=== PATIENT | female | born 1985 | race Two or more races ===

== ENCOUNTER → 2016-04-27 | Outpatient (CLI) | payer OTHER ==
[~2016-04-27] MED LIST: FE G325T PO; MOTR200T44 PO; TYLE325T5 PO
--- NOTE | 2016-04-27 10:09 | REP ---
Clinical: Anatomical evaluation. Comparison: 03/04/2016 . Findings: Examination demonstrates a single live intrauterine in breech presentation. motion is identified by technologist. Placenta is noted anteriorly and grade zero without evidence for placenta previa or abruption. Amniotic fluid volume is normal. Cervix measures 4.3 cm in length and appears closed. No evidence for nuchal cord. Gestational age by LMP 24 weeks 1 day with CHRISSY 08/16/2016 . Gestational age by current measurements 24 weeks 0 days with CHRISSY 08/17/2016 . FHR equals 139 beats per minute. Estimated weight 724 grams ( 61st percentile). Anatomical assessment demonstrates normal structures including cranium, choroid plexus, cavum, cerebellum/posterior fossa, facial features, lungs, four-chamber heart/ventricular outflow tracts, diaphragm, stomach, cord insertion, kidneys/bladder, spine, and extremities. Two vessel cord again noted. Impression: Single live intrauterine in breech presentation demonstrating appropriate interval growth. Two-vessel cord (single umbilical artery) again noted. Anatomical assessment is otherwise complete and normal. Signed by Rafael Velásquez MD 04/27/2016 10:00 A
== END ==
LOC: M SMT 08:37
PROVIDERS: ATTEND Advanced Practice Midwife
DX: O32.1XX0 Maternal care for breech presentation, not applicable or unspecified (principal); Z36 Encounter for antenatal screening of mother; Z3A.24 24 weeks gestation of pregnancy

== ENCOUNTER → 2016-05-21 | Outpatient (CLI) | payer OTHER ==
[2016-05-21 16:43] LABS: MEAN CORPUSCULAR HEMOGLOBIN 26.8 pg (27.0-33.0); MEAN CORPUSCULAR HGB CONC 30.8 g/dl (32.0-36.5); MEAN CORPUSCULAR VOLUME 87.1 fl (80.0-96.0); WHITE BLOOD COUNT 13.1 K/mm3 (4.0-10.0)
== END ==
LOC: M SMT 10:35
PROVIDERS: ATTEND Advanced Practice Midwife
DX: Z34.82 Encounter for supervision of other normal pregnancy, second trimester (principal); Z36 Encounter for antenatal screening of mother; Z3A.00 Weeks of gestation of pregnancy not specified

== ENCOUNTER → 2016-06-17 | Outpatient (CLI) | payer OTHER ==
--- NOTE | 2016-06-17 14:12 | REP ---
OB ULTRASOUND: Real-time sonographic evaluation of the gravid uterus is performed. There is a single living intrauterine gestation with an estimated gestational age of 31 weeks 3 days, EDC 08/16/2016. Today's measurements indicate appropriate growth. BPD 79 mm = 31 weeks 5 days, 54th percentile HC 294 mm = 32 weeks 3 days, 65th percentile AC 280 mm = 32 weeks 0 days, 59th percentile Femur length 63 mm = 32 weeks 4 days, 67th percentile HC/AC ratio 1.05 within normal range. Estimated weight 1922 grams, 59th percentile. Cervix is closed and measures 4.6 cm in length. heart rate 133 beats per minute. Amniotic fluid within normal limits, KRISTEN 11.9 within normal range of 8.7 to 24.0. S/D ratio 3.26 within normal range. RI 0.69 within normal range. Visualized anatomy today includes posterior fossa, upper lip, four chamber heart, right ventricular outflow tract, stomach, kidneys, and bladder which are all grossly unremarkable. position is vertex. Placenta is anterior with no previa. IMPRESSION: Appropriate growth. Normal KRISTEN. Signed by Kana Malik MD 06/17/2016 02:29 P
== END ==
LOC: M SMT 12:56
PROVIDERS: ATTEND Advanced Practice Midwife
DX: Z34.83 Encounter for supervision of other normal pregnancy, third trimester (principal); Z36 Encounter for antenatal screening of mother; Z3A.31 31 weeks gestation of pregnancy

== ENCOUNTER → 2016-07-02 | Outpatient (CLI) | payer OTHER ==
[2016-07-02 18:08] LABS: MEAN CORPUSCULAR HEMOGLOBIN 25.1 pg (27.0-33.0); MEAN CORPUSCULAR HGB CONC 31.8 g/dl (32.0-36.5); MEAN CORPUSCULAR VOLUME 78.8 fl (80.0-96.0); WHITE BLOOD COUNT 12.3 K/mm3 (4.0-10.0)
== END ==
LOC: M SMT 15:01
PROVIDERS: ATTEND Advanced Practice Midwife
DX: Z34.83 Encounter for supervision of other normal pregnancy, third trimester (principal); Z36 Encounter for antenatal screening of mother; Z3A.00 Weeks of gestation of pregnancy not specified

== ENCOUNTER → 2016-07-17 | Outpatient (CLI) | payer OTHER ==
--- NOTE | 2016-07-19 12:46 | REP ---
OB ULTRASOUND: Real-time sonographic evaluation of the gravid uterus is performed. There is a single living intrauterine gestation. The estimated gestational age is 35 weeks 5 days, with EDC 08/16/2016. Today's measurements indicate appropriate growth. Biometry and Growth: BPD 90 mm = 36 weeks 3 days, 61st percentile HC 310 mm = 34 weeks 5 days, 35th percentile AC 309 mm = 34 weeks 6 days, 37th percentile FL 69 mm = 35 weeks 4 days, 49th percentile HC/AC ratio 1.01 within normal range. Estimated weight 2613 grams, 41st percentile. Four chamber heart, stomach, kidneys and bladder are visualized and are grossly unremarkable. heart rate: 133 beats per minute. position: Vertex. Placenta: Anterior with no previa. Amniotic fluid: Within normal limits, KRISTEN 11.4 within normal range of 7.8 to 24.9. S/D ratio: 3.1 is slightly above the normal range of 2.0 to 3.0. RI: 0.67 is within normal range of 0.59 to 0.75. Signed by Kana Malik MD 07/19/2016 07:56 P
== END ==
LOC: M SMT 13:09
PROVIDERS: ATTEND Advanced Practice Midwife
DX: Z34.83 Encounter for supervision of other normal pregnancy, third trimester (principal); Z36 Encounter for antenatal screening of mother; Z3A.35 35 weeks gestation of pregnancy

== ENCOUNTER → 2016-07-22 | Outpatient (REF) | payer OTHER | LOC: M LAB REF 16:56 | PROVIDERS: ATTEND Advanced Practice Midwife | DX: Z34.83 Encounter for supervision of other normal pregnancy, third trimester (principal); Z36 Encounter for antenatal screening of mother; Z3A.00 Weeks of gestation of pregnancy not specified ==

== ENCOUNTER → 2016-07-28 | Outpatient (CLI) | payer OTHER ==
[~2016-07-28] MED LIST changes: +ACET50TA PO; +COLA100C3 PO; +FERR325T3 PO; +IBUP-1114 PO; +PRENTAB55 PO; +RANI15TA PO
[2016-07-28 17:32] LABS: MEAN CORPUSCULAR HEMOGLOBIN 23.2 pg (27.0-33.0); MEAN CORPUSCULAR HGB CONC 30.5 g/dl (32.0-36.5); MEAN CORPUSCULAR VOLUME 76.1 fl (80.0-96.0); RED CELL DISTRIBUTION WIDTH 16.4 % (11.5-14.5)
[2016-07-29 08:54] LABS: WHITE BLOOD COUNT 13.8 K/mm3 (4.0-10.0)
== END ==
LOC: M SMT 14:54
PROVIDERS: ATTEND Advanced Practice Midwife
DX: D64.9 Anemia, unspecified (principal)

== ENCOUNTER 2016-08-09 19:29 | Inpatient (IN) | payer OTHER ==
[~2016-08-09] VITALS: Ht 160 cm; Wt 68.0 kg
[~2016-08-09 19:29] MED LIST changes: -ACET50TA PO; -COLA100C3 PO; -FERR325T3 PO; -IBUP-1114 PO; -PRENTAB55 PO; -RANI15TA PO
[2016-08-09] MEDS ORDERED: RANI15TA PO (19:39)
[2016-08-09] MEDS ORDERED: PRENTAB55 PO (19:39)
[2016-08-09] MEDS ORDERED: FERR325T3 PO (19:39)
[2016-08-09] MEDS ORDERED: LR 1,000 ML IV SCH (19:57)
[2016-08-09] MEDS ORDERED: OXYTOCIN DRIP 30 UNITS in APPROPRIATE DILUENT 1 EA IV SCH ×2 (20:00→23:45)
--- NOTE | 2016-08-09 20:38 | HPE ---
DATE OF ADMISSION: 08/09/2016 HISTORY OF PRESENT ILLNESS: Jasmin is a 30-year-old 3, para 1-0-1-1, and 39-2/7 weeks gestation with an estimated date of confinement (EDC) of 08/14/2016, based on last normal menstrual period and supported by second trimester ultrasound. She presents to labor and delivery today with report of spontaneous rupture of membranes at approximately 10 a.m. of clear odorless fluid. She reports an occasional contraction. Denies vaginal bleeding and has had continued leakage of fluid. Her fetus has also been active. care was initiated at [facility] in the second trimester. course is complicated by two-vessel umbilical cord and the circumvallate placenta, as well as anemia. OBSTETRICAL HISTORY: September 2013, at 40 weeks gestation she had a spontaneous vaginal delivery for 6 pounds 8 ounce female. June 2015, she had a spontaneous . OBSTETRICAL LABORATORIES: Blood type O positive, antibody screen negative, rubella immune, venereal disease research laboratory (VDRL) nonreactive. Urine culture no growth. Hepatitis B surface antigen negative, HIV negative. Hepatitis C antibody nonreactive. Gonorrhea, chlamydia negative. She did decline genetic serum screenings. Her gestational diabetic screening was 110 and her GBS is negative. Her most recent hemoglobin and hematocrit on 07/28: Hematocrit 33.2, hemoglobin 10.1 and platelets 199. PAST MEDICAL HISTORY: Anemia, childhood varicella. SURGERIES: None. FAMILY HISTORY: Noncontributory. SOCIAL HISTORY: The patient is . Her is at bedside and supportive. She is a nonsmoker. Denies alcohol and drug use. No history of sexually transmitted infections or signs or history of abuse physical, sexual and emotional. ALLERGIES: No known drug allergies CURRENT MEDICATIONS: Include Zantac 150 mg, folic acid, vitamins and iron. OBJECTIVE: Vital signs have not been completed at this time of this dictation. However, her blood pressure is noted to be at 112/70. She is alert and oriented times three and she is in no apparent distress. She is smiling and talkative. heart rate is 130 with moderate variability, positive accelerations, no decelerations observed. There is no pattern of regular contractions. Her abdomen is gravid, cephalic presentation. Estimated weight approximately 7 pounds. Sterile spec exam: She has gross rupture of membranes clear fluid, positive fern, positive Nitrazine. Sterile vaginal exam 4 cm dilated, 80% effaced, zero station. ASSESSMENT: Intrauterine at 39-2/7 weeks. heart rate category one. Premature rupture of membranes. PLAN: Admit the patient to labor and delivery. Saline lock. Labs as ordered. Out of bed ad ronaldo. Clear liquid diet. I did review both induction of labor and expectant management at this time. Reviewed the options for induction of intravenous (IV) Pitocin. All the patient's and her 's questions were answered and they do desire to proceed with Pitocin induction at this time. I do anticipate labor and a spontaneous vaginal delivery.
[2016-08-09 21:01] LABS: MEAN CORPUSCULAR HEMOGLOBIN 22.6 pg (27.0-33.0); MEAN CORPUSCULAR HGB CONC 31.2 g/dl (32.0-36.5); MEAN CORPUSCULAR VOLUME 72.3 fl (80.0-96.0); RED CELL DISTRIBUTION WIDTH 16.7 % (11.5-14.5); WHITE BLOOD COUNT 11.3 K/mm3 (4.0-10.0)
[2016-08-09] MEDS ORDERED: RHOGAM 300 MCG (1500 IU) INJ (J2790) IM SCH (23:45)
[2016-08-09] MEDS ORDERED: MEASLES,MUMPS,RUBELLA VACCINE INJ (MMR-II) (90707) SC SCH (23:45)
[2016-08-09] MEDS ORDERED: DOCUSATE SODIUM 100 MG CAP PO PRN (23:45)
[2016-08-09] MEDS ORDERED: METHYLERGONOVINE MALEATE 0.2 MG TAB PO PRN (23:45)
[2016-08-09] MEDS ORDERED: DIBUCAINE 1% OINTMENT 30GM TOP PRN (23:45)
[2016-08-10] MEDS: ACETAMINOPHEN 500 MG TAB PO PRN ×2 (01:02→21:19)
[2016-08-10] MEDS: IBUPROFEN 800 MG TAB PO PRN ×2 (01:02→09:00)
[2016-08-10 01:36] VITALS: BP 133/63
--- NOTE | 2016-08-10 01:50 | DN ---
DATE OF SERVICE: 08/09/2016 Jasmin is a 30-year-old 3, para 2-0-1-2 admitted to labor and delivery with premature rupture of membranes. Intravenous (IV) Pitocin was started and labor did ensue. She reached full dilation at 2315. She pushed to a normal spontaneous vaginal delivery of a live female in occiput anterior (OA) position with restitution to left occiput transverse (LOT) position at 2320. There was no nuchal cord. The shoulders delivered with gentle downward guidance and the corpus immediately followed. The was placed on maternal abdomen crying and active. Her mouth and nares were bulb suctioned. The cord was clamped times two and cut by the father of the baby. A cord blood was obtained. Spontaneous expulsion of an intact placenta with two-vessel cord by Leslie mechanism was at 2326. There were trailing membranes that were teased out with a ring forceps. Uterine hemostasis achieved with IV Pitocin rapid infusion and uterine fundal massage. Estimated blood loss 400 mL. Perineum and vagina inspected and noted to be intact. female weighed 3312 grams, 7 pounds 5 ounces, scores 9 and 10. Mother plans to breastfeed her daughter. The family is undecided as to what to name their daughter at this time. At the close of delivery, lap counts, instrument counts and needle counts were correct and verified. [facility]
[2016-08-10 06:08] VITALS: BP 98/54
[2016-08-10] MEDS: PRENATAL VITAMIN TAB PO SCH (09:00)
[2016-08-10 18:00] VITALS: BP 109/57
[2016-08-11 06:41] VITALS: BP 100/56
[2016-08-11] MEDS: PRENATAL VITAMIN TAB PO SCH (08:47)
[2016-08-11] MEDS ORDERED: ACET50TA PO (08:51)
[2016-08-11] MEDS ORDERED: COLA100C3 PO (08:51)
[2016-08-11] MEDS ORDERED: IBUP-1114 PO (08:51)
== END 2016-08-11 12:00 | disposition home or self-care (01) | DRG 560 ==
LOC: M LDO 19:29 → M LDI 19:55 → M OBS 08-10 01:26
PROVIDERS: ADMIT Advanced Practice Midwife; ATTEND Advanced Practice Midwife
PROC: 10E0XZZ Delivery of Products of Conception, External Approach (ICD-10-PCS; principal; 2016-08-09)
DX: O99.02 Anemia complicating childbirth (principal); D64.9 Anemia, unspecified; O43.113 Circumvallate placenta, third trimester; O69.89X0 Labor and delivery complicated by other cord complications, not applicable or unspecified; Z37.0 Single live birth; Z3A.39 39 weeks gestation of pregnancy; Z79.899 Other long term (current) drug therapy

== ENCOUNTER → 2016-09-21 | Outpatient (REF) | payer OTHER ==
[~2016-09-21] MED LIST changes: +ACET50TA PO; +COLA100C5 PO; +FERR325T3 PO; +IBUP-1114 PO; +PRENTAB55 PO; +RANI15TA PO
== END ==
LOC: M LAB REF 12:56
PROVIDERS: ATTEND Advanced Practice Midwife
DX: R30.0 Dysuria (principal)

== ENCOUNTER → 2017-08-23 | Outpatient (CLI) | payer OTHER, SELFPAY ==
[2017-08-23 16:59] LABS: BASO % 0.4 % (0.0-1.0); EOS # 0.1 10^3/uL (0.0-0.50); EOS % 1.3 % (0.0-3.0); HEMATOCRIT 36.4 % (36.0-47.0); HEMOGLOBIN 11.6 g/dl (12.0-15.5); IMMATURE GRANULOCYTE % 0.9 % (0-3.0); LYMPH % 28.4 % (24.0-44.0); MEAN CORPUSCULAR HEMOGLOBIN 28.9 pg (27.0-33.0); MEAN CORPUSCULAR HGB CONC 31.9 g/dl (32.0-36.5); MEAN CORPUSCULAR VOLUME 90.5 fl (80.0-96.0); MONO # 0.4 10^3/uL (0.0-0.8); NEUTROPHILS # 4.4 10^3/uL (1.8-7.7); PLATELET COUNT, AUTOMATED 251 10^3/uL (150-450); RED BLOOD COUNT 4.02 10^6/uL (4.00-5.40); RED CELL DISTRIBUTION WIDTH 13.7 % (11.5-14.5)
[2017-08-23 17:32] LABS: HCG, SERUM QUANTITATIVE 2223 MIU/ML
== END ==
LOC: M WUC 12:45
DX: N91.2 Amenorrhea, unspecified (principal)
CPT/HCPCS: 84702

== ENCOUNTER → 2017-10-15 | Outpatient (CLI) | payer OTHER ==
[2017-10-15 18:13] LABS: BASO % 0.3 % (0.0-1.0); EOS # 0.1 10^3/uL (0.0-0.50); EOS % 0.8 % (0.0-3.0); HEMOGLOBIN 11.4 g/dl (12.0-15.5); IMMATURE GRANULOCYTE % 0.4 % (0-3.0); LYMPH # 1.4 10^3/uL (1.5-6.5); LYMPH % 17.3 % (24.0-44.0); MEAN CORPUSCULAR HEMOGLOBIN 29.1 pg (27.0-33.0); MEAN CORPUSCULAR HGB CONC 31.7 g/dl (32.0-36.5); MEAN CORPUSCULAR VOLUME 91.8 fl (80.0-96.0); MONO # 0.3 10^3/uL (0.0-0.8); MONO % 4.2 % (0.0-5.0); NEUTROPHILS # 6.1 10^3/uL (1.8-7.7); PLATELET COUNT, AUTOMATED 217 10^3/uL (150-450); RED BLOOD COUNT 3.92 10^6/uL (4.00-5.40); RED CELL DISTRIBUTION WIDTH 13.2 % (11.5-14.5); WHITE BLOOD COUNT 7.9 10^3/uL (4.0-10.0)
[2017-10-15 18:39] LABS: FREE T4 0.85 NG/DL (0.76-1.46)
[2017-10-15 20:08] LABS: CHLAMYDIA DNA AMPLIFICATION NEGATIVE (NEGATIVE); GC DNA AMPLIFICATION NEGATIVE (NEGATIVE)
[2017-10-18 11:27] LABS: RUBELLA IgG QUALITATIVE IMMUNE (IMMUNE)
[2017-10-18 11:33] LABS: HBsAg Prenatal NEGATIVE (NEGATIVE)
[2017-10-18 11:57] LABS: HEPATITIS C VIRUS ABY INDEX 0.1 INDEX (<0.8)
[2017-10-18 11:58] LABS: HIV 1&2 SCREEN CENTAUR NEGATIVE (NEGATIVE)
== END ==
LOC: M SMT 15:04
DX: Z34.81 Encounter for supervision of other normal pregnancy, first trimester (principal); Z3A.12 12 weeks gestation of pregnancy
CPT/HCPCS: 84443

== ENCOUNTER → 2017-11-09 | Outpatient (CLI) | payer OTHER | LOC: M RAD 12:16 | DX: Z34.81 Encounter for supervision of other normal pregnancy, first trimester (principal); Z36.89 Encounter for other specified antenatal screening; Z3A.16 16 weeks gestation of pregnancy | CPT/HCPCS: 76811 ==

== ENCOUNTER → 2017-11-30 | Outpatient (CLI) | payer OTHER | LOC: M RAD 11:56 | DX: Z34.82 Encounter for supervision of other normal pregnancy, second trimester (principal); Z36.89 Encounter for other specified antenatal screening; Z3A.19 19 weeks gestation of pregnancy | CPT/HCPCS: 76816 ==

== ENCOUNTER → 2018-01-31 | Outpatient (CLI) | payer OTHER ==
[2018-01-31 13:36] LABS: BASO % 0.2 % (0.0-1.0); EOS # 0.1 10^3/uL (0.0-0.50); EOS % 0.6 % (0.0-3.0); HEMATOCRIT 32.2 % (36.0-47.0); IMMATURE GRANULOCYTE % 1.6 % (0-3.0); LYMPH # 1.3 10^3/uL (1.5-4.5); LYMPH % 12.8 % (24.0-44.0); MEAN CORPUSCULAR HGB CONC 31.1 g/dl (32.0-36.5); MEAN CORPUSCULAR VOLUME 83.9 fl (80.0-96.0); MONO # 0.5 10^3/uL (0.0-0.8); MONO % 5.1 % (0.0-5.0); NEUTROPHILS # 8.3 10^3/uL (1.8-7.7); NEUTROPHILS % 79.7 % (36.0-66.0); PLATELET COUNT, AUTOMATED 172 10^3/uL (150-450); RED BLOOD COUNT 3.84 10^6/uL (4.00-5.40); RED CELL DISTRIBUTION WIDTH 14.4 % (11.5-14.5); WHITE BLOOD COUNT 10.4 10^3/uL (4.0-10.0)
[2018-01-31 13:51] LABS: GLUCOSE CHALLENGE TEST 1 HOUR 114 MG/DL (LESS THAN 140)
== END ==
LOC: M SMT 10:29
DX: Z34.82 Encounter for supervision of other normal pregnancy, second trimester (principal); Z3A.00 Weeks of gestation of pregnancy not specified
CPT/HCPCS: 82950

== ENCOUNTER → 2018-03-21 | Outpatient (REF) | payer OTHER ==
[~2018-03-21] MED LIST changes: -ACET50TA PO; +MAPA500T2 PO
== END ==
LOC: M LAB REF 17:24
PROVIDERS: ATTEND Advanced Practice Midwife
DX: R30.0 Dysuria (principal)

== ENCOUNTER → 2018-03-29 | Outpatient (REF) | payer OTHER | LOC: M LAB REF 17:14 | PROVIDERS: ATTEND Advanced Practice Midwife | DX: O99.89 Other specified diseases and conditions complicating pregnancy, childbirth and the puerperium (principal); Z3A.00 Weeks of gestation of pregnancy not specified ==

== ENCOUNTER 2018-04-23 05:04 | Inpatient (IN) | payer OTHER ==
[2018-04-23] VITALS (9 sets, daily range): BP systolic 98–126; BP diastolic 54–72
[2018-04-23 05:56] LABS: HEMATOCRIT 33.1 % (36.0-47.0); HEMOGLOBIN 9.7 g/dl (12.0-15.5); MEAN CORPUSCULAR HEMOGLOBIN 21.7 pg (27.0-33.0); MEAN CORPUSCULAR HGB CONC 29.3 g/dl (32.0-36.5); MEAN CORPUSCULAR VOLUME 73.9 fl (80.0-96.0); PLATELET COUNT, AUTOMATED 180 10^3/uL (150-450); RED BLOOD COUNT 4.48 10^6/uL (4.00-5.40); WHITE BLOOD COUNT 15.3 10^3/uL (4.0-10.0)
[2018-04-23] MEDS ORDERED: OXYTOCIN 30 UNITS IN 0.9% NaCl 500ML IV BAG (J2590) As Ordered ONE (07:12)
[2018-04-23] MEDS ORDERED: LR 1,000 ML IV SCH (07:22)
[2018-04-23] MEDS ORDERED: OXYTOCIN DRIP 30 UNITS in APPROPRIATE DILUENT 1 EA IV SCH ×2 (07:30→09:01)
[2018-04-23] MEDS: PRENATAL VITAMINS CHEWABLE TABLET PO SCH (09:00)
[2018-04-23] MEDS ORDERED: METHYLERGONOVINE MALEATE 0.2 MG TAB PO PRN (09:15)
[2018-04-23] MEDS ORDERED: ACETAMINOPHEN 500 MG TAB PO PRN (09:15)
[2018-04-23] MEDS ORDERED: RHOGAM 300 MCG (1500 IU) INJ (J2790) IM SCH (09:15)
[2018-04-23] MEDS ORDERED: DIBUCAINE 1% OINTMENT 30GM TOP PRN (09:15)
[2018-04-23] MEDS ORDERED: DOCUSATE SODIUM 100 MG CAP PO PRN (09:15)
[2018-04-23] MEDS ORDERED: MEASLES,MUMPS,RUBELLA VACCINE INJ (MMR-II) (90707) SC SCH (09:15)
[2018-04-23] MEDS ORDERED: ANUSOL HC CREAM 30GM TOP PRN (09:15)
[2018-04-23] MEDS: IBUPROFEN 800 MG TAB PO PRN ×2 (09:27→21:24)
--- NOTE | 2018-04-23 09:49 | DN ---
DATE OF DELIVERY: 04/23/2018 Jasmin is a 32-year-old 4, para 3-0-1-3 now who was admitted to labor and delivery in active labor. She coped with her labor physiologically. She had assisted rupture of membranes for clear odorless fluid at 0557. She reached full dilation at 0838. She pushed to a normal spontaneous vaginal delivery of a live male in OA position with restitution to ROT position at 0840. There was no nuchal cord. The shoulders delivered with gentle downward guidance and the corpus immediately followed. The male was placed on maternal abdomen crying and active. Mouth and nares were bulb suctioned. The cord was clamped times two once pulsations ceased and cut by the father of the baby under my direction. A spontaneous expulsion of an intact placenta with three-vessel cord by Leslie mechanism was at 0847. Uterine hemostasis was achieved with IV Pitocin rapid infusion and uterine fundal massage. Estimated blood loss 300 mL. Perineum and vagina inspected and noted to be intact. male weighed 4030 grams, 8 pounds 14 ounces, of 9 and 9. Mom is going to breastfeed her son. At this time, the family is undecided as to what to name their son. At the close of delivery, lap counts and instrument counts were correct and verified.
--- NOTE | 2018-04-23 12:15 | HPE ---
DATE OF ADMISSION: 04/23/2018 Jasmin is a 32-year-old 4, para 2-0-1-2 at 40 weeks gestation with an EDC of 04/23/2018 based on last menstrual period and confirmed by second trimester ultrasound who presents to labor and delivery today with report of onset of uncomfortable contractions at 0300. Denies any bloody show and leakage of fluid. The fetus has been active. Her care was initiated at [facility] in the second trimester. course complicated by anemia. History of two children with functional VSD. No repair was required for and she did not make obstetric provider aware of this until far into the third trimester. OBSTETRICAL HISTORY: September 2013, 40 weeks gestation, spontaneous vaginal delivery, 6 pounds 8 ounce female. June 2015 spontaneous miscarriage. August 2016, 39-3/7 weeks spontaneous vaginal delivery for 7 pound 5 ounce female. OBSTETRIC LABS: O+, antibody screen negative, rubella immune, VDRL nonreactive. Urine culture no growth. Hep B surface antigen, HIV negative. Hep C antibody nonreactive. Gonorrhea and chlamydia negative. Thyroid normal. She did decline genetic serum screening labs. Gestational diabetic screening normal at 114. Her GBS is negative. PAST MEDICAL HISTORY: Anemia. SURGERIES: Hemorrhoidectomy. FAMILY HISTORY: Noncontributory. SOCIAL HISTORY: The patient is . Her is at bedside and supportive. She is a nonsmoker. Denies alcohol and drug use. No history of any sexually transmitted infections and denies history of abuse, physical, sexual and emotional. ALLERGIES: No known drug allergies. CURRENT MEDICATIONS: - Protonix - vitamins - Floradix liquid iron OBJECTIVE: Blood pressure is 112/71. She is alert and oriented times three. She does appear uncomfortable with her contractions. heart rate is 140 with moderate variability, positive accelerations, positive variable decelerations. Contractions are approximately every 5 minutes. Her abdomen is gravid, cephalic presentation. Estimated weight 7-1/2 to 8 pounds. Sterile vaginal exam 6 cm, 80%. -1 station, membranes intact. Scant bloody show. ASSESSMENT: Intrauterine at 40 weeks gestation. heart rate category II active labor. PLAN: Admit the patient to labor and delivery. Out of bed ad ronaldo. Saline lock. Position re-change IV fluid bolus Routine labs. I do anticipate continued labor and a spontaneous vaginal delivery. MTDD
[2018-04-23] MEDS ORDERED: OXYTOCIN INJ 10 UNITS/ML VIAL (J2590) As Ordered ONE (15:02)
[2018-04-24 06:00] VITALS: BP 107/60
[2018-04-24] MEDS: PRENATAL VITAMINS CHEWABLE TABLET PO SCH (09:00)
[2018-04-24] MEDS ORDERED: PRENATAL VITAMINS CHEWABLE TABLET PO SCH (09:00)
[2018-04-24] MEDS: IBUPROFEN 800 MG TAB PO PRN (09:20)
[2018-04-24] MEDS ORDERED: IBUP-1114 PO (10:33)
[2018-04-24] MEDS ORDERED: MAPA500T2 PO (10:33)
== END 2018-04-24 16:15 | disposition home or self-care (01) | DRG 560 ==
LOC: M LDO 05:04 → M LDI 05:31 → M OBS 13:31
PROVIDERS: ADMIT Advanced Practice Midwife; ATTEND Advanced Practice Midwife
PROC: 10E0XZZ Delivery of Products of Conception, External Approach (ICD-10-PCS; principal; 2018-04-23)
PROC: 10907ZC Drainage of Amniotic Fluid, Therapeutic from Products of Conception, Via Natural or Artificial Opening (ICD-10-PCS; 2018-04-23)
DX: O99.02 Anemia complicating childbirth (principal); D64.9 Anemia, unspecified; Z3A.40 40 weeks gestation of pregnancy; Z37.0 Single live birth

== ENCOUNTER → 2019-01-27 | Outpatient (CLI) | payer OTHER ==
[2019-01-27 10:08] LABS: HEMATOCRIT 40.5 % (36.0-47.0); HEMOGLOBIN 12.9 g/dl (12.0-15.5); MEAN CORPUSCULAR HEMOGLOBIN 29.3 pg (27.0-33.0); MEAN CORPUSCULAR HGB CONC 31.9 g/dl (32.0-36.5); PLATELET COUNT, AUTOMATED 248 10^3/uL (150-450); WHITE BLOOD COUNT 6.1 10^3/uL (4.0-10.0)
[2019-01-27 10:40] LABS: ALBUMIN 4.3 GM/DL (3.2-5.2); ALT/SGPT 19 U/L (12-78); BILIRUBIN,TOTAL 2.3 MG/DL (0.2-1.0); BLOOD UREA NITROGEN 19 MG/DL (7-18); CALCIUM LEVEL 9.1 MG/DL (8.5-10.1); CARBON DIOXIDE LEVEL 28 MEQ/L (21-32); CHLORIDE LEVEL 110 MEQ/L (98-107); CHOLESTEROL LEVEL 150 MG/DL (<200); CREATININE FOR GFR 0.75 MG/DL (0.55-1.30); GLOMERULAR FILTRATION RATE > 60.0 (>60); GLUCOSE, FASTING 90 MG/DL (70-100); HDL CHOLESTEROL 50 MG/DL (>40); IRON (FE) 129 UG/DL (50-170); LDL CHOLESTEROL 92 MG/DL (<100); NON-HDL-C 100 MG/DL; PERCENT SATURATION 40.8 % (13.2-45.0); POTASSIUM SERUM 4.2 MEQ/L (3.5-5.1); SODIUM LEVEL 142 MEQ/L (136-145); TOTAL IRON BINDING CAPACITY 316 UG/DL (250-450); TOTAL PROTEIN 7.6 GM/DL (6.4-8.2); TRIGLYCERIDES LEVEL 42 MG/DL (<150)
[2019-01-27 10:49] LABS: TOTAL 25(OH) VITAMIN D 25.8 NG/ML (30.0-100.0)
== END ==
LOC: M LAB 09:45
PROVIDERS: ATTEND Family Medicine
DX: D64.9 Anemia, unspecified (principal); R53.83 Other fatigue

== ENCOUNTER → 2019-02-13 | Outpatient (CLI) | payer MEDICAID, OTHER, SELFPAY ==
[~2019-02-13] MED LIST changes: +E-Z-GAS II EFFERVESCENT PACKET (SODIUM BICARB./CITRIC ACID/SIMETHICONE) As Ordered ONE; +E-Z-HD 98% w/w 340GM SUSP BTL As Ordered ONE; +E-Z-PAQUE 96% w/w SUSP 176GM BTL As Ordered ONE
--- NOTE | 2019-02-13 09:38 | REP ---
RIGHT UPPER QUADRANT ULTRASOUND: Real-time sonographic evaluation of the right upper quadrant was performed. Gallbladder demonstrates no calculi, wall thickening or pericholecystic fluid. There is no intrahepatic or extrahepatic biliary dilatation. Common bile duct measuring 4 mm. Liver and pancreas demonstrates no gross mass. Right kidney demonstrates no hydronephrosis with normal size of 11.1 cm in length. IMPRESSION: Essentially negative right upper quadrant ultrasound. Electronically Signed by Kana Malik MD 02/13/2019 03:47 P
--- NOTE | 2019-02-13 18:05 | REP ---
Upper GI air contrast The procedure was performed under the direct supervision of Dr. Ying. The images were reviewed with Dr. Ying The specimen collector film shows no organomegaly or pathological masses. The intestinal gas pattern is non-specific. Liquid barium and gas producing crystals were given in the erect position as well as liquid barium in the prone oblique position in order to perform a double contrast upper GI examination. The oral and pharyngeal stages of deglutition are unremarkable. Esophageal transport is prompt and efficient and there is no esophagitis, stricture, mucosal ring or hiatal hernia. Gastroesophageal reflux is not demonstrated on this examination. Within the stomach there are prominent areae gastricae a which may represent early gastritis. There is no ulcer identified. The duodenal tomas are normally outlined . The mucosal folds are smooth and regular. There is no duodenitis pancreatitis peptic ulcer disease or neoplasm. The visualized portion of the proximal small bowel appears normal in course and caliber. Impression: There are prominent areae gastricae within the stomach which may represent early gastritis. There is no ochoa ulcer identified. 1.5 minutes of fluoro time was utilized for this procedure. Electronically Signed by ALINE Samuel 02/13/2019 04:57 P Electronically Signed by Rashard Ying MD 02/13/2019 05:57 P
== END ==
LOC: M RAD 07:36
PROVIDERS: ATTEND Family Medicine
DX: K21.9 Gastro-esophageal reflux disease without esophagitis (principal); R10.9 Unspecified abdominal pain

== ENCOUNTER 2019-05-04 10:21 | Outpatient (RCR) | payer OTHER ==
[~2019-05-04 10:21] MED LIST changes: -E-Z-GAS II EFFERVESCENT PACKET (SODIUM BICARB./CITRIC ACID/SIMETHICONE) As Ordered ONE; -E-Z-HD 98% w/w 340GM SUSP BTL As Ordered ONE; -E-Z-PAQUE 96% w/w SUSP 176GM BTL As Ordered ONE
== END 2019-05-06 | disposition home or self-care (01) ==
LOC: M PT 10:21
PROVIDERS: ATTEND Advanced Practice Midwife
DX: R32 Unspecified urinary incontinence (principal)

== ENCOUNTER 2019-05-23 10:56 | Outpatient (RCR) | payer OTHER | END 2019-06-06 | LOC: M PT 10:56 | PROVIDERS: ATTEND Advanced Practice Midwife | DX: N39.3 Stress incontinence (female) (male) (principal) ==

== ENCOUNTER → 2021-01-01 | Outpatient (CLI) | payer OTHER ==
[2021-01-01 11:53] LABS: HEMATOCRIT 40.7 % (36.0-47.0); MEAN CORPUSCULAR HEMOGLOBIN 29.6 pg (27.0-33.0); MEAN CORPUSCULAR HGB CONC 31.9 g/dl (32.0-36.5); MEAN CORPUSCULAR VOLUME 92.7 fl (80.0-96.0); PLATELET COUNT, AUTOMATED 240 10^3/uL (150-450); RED BLOOD COUNT 4.39 10^6/uL (4.00-5.40); WHITE BLOOD COUNT 6.9 10^3/uL (4.0-10.0)
[2021-01-01 12:54] LABS: ALBUMIN 3.9 GM/DL (3.2-5.2); ALT/SGPT 21 U/L (12-78); BILIRUBIN,TOTAL 1.4 MG/DL (0.2-1.0); BLOOD UREA NITROGEN 14 MG/DL (7-18); CALCIUM LEVEL 9.3 MG/DL (8.5-10.1); CARBON DIOXIDE LEVEL 28 MEQ/L (21-32); CHLORIDE LEVEL 106 MEQ/L (98-107); CHOLESTEROL LEVEL 163 MG/DL (<200); CHOLESTEROL RISK RATIO 3.543 (<5); CREATININE FOR GFR 0.75 MG/DL (0.55-1.30); GLOMERULAR FILTRATION RATE > 60.0 (>60); GLUCOSE, FASTING 95 MG/DL (70-100); HDL CHOLESTEROL 46 MG/DL (>40); LDL CHOLESTEROL 97 MG/DL (<100); NON-HDL-C 117 MG/DL; SODIUM LEVEL 138 MEQ/L (136-145); TOTAL PROTEIN 7.3 GM/DL (6.4-8.2); TRIGLYCERIDES LEVEL 101 MG/DL (<150)
[2021-01-01 13:12] LABS: HEMOGLOBIN A1c 5.2 %
--- NOTE | 2021-01-01 13:38 | REP ---
INDICATION: ANEMIA,FATIGUE,SCIATICA. COMPARISON: None. TECHNIQUE: AP view pelvis. FINDINGS: There is no acute fracture, dislocation or intrinsic bone disease. The hip joints are normal. The sacroiliac joints appear unremarkable. IMPRESSION: Negative exam pelvis. <Electronically signed by Kana Malik > 01/01/21 [id number]
--- NOTE | 2021-01-01 13:40 | REP ---
INDICATION: ANEMIA,FATIGUE,SCIATICA. COMPARISON: None. TECHNIQUE: Five views lumbosacral spine. FINDINGS: There is no compression fracture or malalignment. There is normal lumbar lordosis. There is mild spurring of L2 and L3 vertebral bodies with mild disc space narrowing and subchondral sclerosis at the L2-3 level.. Posterior elements are intact. IMPRESSION: Mild degenerative changes L2-3. No fracture or dislocation. <Electronically signed by Kana Malik > 01/01/21 [id number]
== END ==
LOC: M RAD 09:39
PROVIDERS: ATTEND Family Medicine
DX: D64.9 Anemia, unspecified (principal); R53.83 Other fatigue; M54.30 Sciatica, unspecified side

== ENCOUNTER → 2021-06-30 | Outpatient (CLI) | payer OTHER, BC | LOC: M PLALAB 12:50 | PROVIDERS: ATTEND Advanced Practice Midwife | DX: O20.8 Other hemorrhage in early pregnancy (principal); Z3A.00 Weeks of gestation of pregnancy not specified ==

== ENCOUNTER → 2021-07-02 | Outpatient (CLI) | payer OTHER, BC | LOC: M PLALAB 12:30 | PROVIDERS: ATTEND Advanced Practice Midwife | DX: O20.8 Other hemorrhage in early pregnancy (principal) ==

== ENCOUNTER → 2021-11-21 | Outpatient (CLI) | payer BC ==
[2021-11-21 15:35] LABS: HEMATOCRIT 39.1 % (36.0-47.0); HEMOGLOBIN 12.6 g/dl (12.0-15.5); MEAN CORPUSCULAR HEMOGLOBIN 29.8 pg (27.0-33.0); MEAN CORPUSCULAR HGB CONC 32.2 g/dl (32.0-36.5); MEAN CORPUSCULAR VOLUME 92.4 fl (80.0-96.0); PLATELET COUNT, AUTOMATED 192 10^3/uL (150-450); RED BLOOD COUNT 4.23 10^6/uL (4.00-5.40); WHITE BLOOD COUNT 10.3 10^3/uL (4.0-10.0)
[2021-11-21 16:58] LABS: GC DNA AMPLIFICATION NEGATIVE (NEGATIVE)
[2021-11-21 17:19] LABS: HEPATITIS C VIRUS ABY INDEX < 0.0 INDEX (<0.8); HIV 1&2 SCREEN CENTAUR NEGATIVE (NEGATIVE)
== END ==
LOC: M PLALAB 13:47
PROVIDERS: ATTEND Advanced Practice Midwife
DX: Z34.92 Encounter for supervision of normal pregnancy, unspecified, second trimester (principal); Z3A.00 Weeks of gestation of pregnancy not specified

== ENCOUNTER → 2021-12-10 | Outpatient (CLI) | payer BC | LOC: M WHC 09:27 | PROVIDERS: ATTEND Advanced Practice Midwife | DX: Z34.92 Encounter for supervision of normal pregnancy, unspecified, second trimester (principal) ==

== ENCOUNTER → 2022-01-07 | Outpatient (CLI) | payer BC | LOC: M WHC 09:31 | PROVIDERS: ATTEND Advanced Practice Midwife | DX: Z34.92 Encounter for supervision of normal pregnancy, unspecified, second trimester (principal) ==

== ENCOUNTER → 2022-02-05 | Outpatient (CLI) | payer BC ==
[2022-02-05 15:55] LABS: HEMATOCRIT 36.7 % (36.0-47.0); HEMOGLOBIN 11.9 g/dl (12.0-15.5); MEAN CORPUSCULAR HEMOGLOBIN 29.3 pg (27.0-33.0); MEAN CORPUSCULAR HGB CONC 32.4 g/dl (32.0-36.5); MEAN CORPUSCULAR VOLUME 90.4 fl (80.0-96.0); PLATELET COUNT, AUTOMATED 149 10^3/uL (150-450); RED BLOOD COUNT 4.06 10^6/uL (4.00-5.40); WHITE BLOOD COUNT 11.6 10^3/uL (4.0-10.0)
== END ==
LOC: M PLALAB 11:24
PROVIDERS: ATTEND Advanced Practice Midwife
DX: Z34.92 Encounter for supervision of normal pregnancy, unspecified, second trimester (principal)

== ENCOUNTER → 2022-04-10 | Outpatient (REF) | payer BC, OTHER | LOC: M SFHCWAGY 12:47 | PROVIDERS: ATTEND Advanced Practice Midwife | DX: Z34.93 Encounter for supervision of normal pregnancy, unspecified, third trimester (principal) ==

== ENCOUNTER 2022-04-21 15:20 | Inpatient (IN) | payer BC, OTHER ==
[~2022-04-21] VITALS: Ht 160 cm; Wt 90.0 kg
[2022-04-21] VITALS (7 sets, daily range): BP systolic 110–143; BP diastolic 62–82
[2022-04-21] MEDS ORDERED: GUAI100S4 (15:32)
[2022-04-21] MEDS ORDERED: LIDOCAINE 1% MDV 20ML VIAL INFIL PRN (15:35)
[2022-04-21] MEDS ORDERED: OXYTOCIN DRIP 30 UNITS in IV 1 EA IV PRN (15:35)
[2022-04-21] MEDS ORDERED: HOME MED LIST COMPLETE! XX SCH (15:35)
[2022-04-21] MEDS ORDERED: OXYTOCIN INJ 10UNITS/ML 1ML VIAL IM ONE (15:40)
[2022-04-21] MEDS ORDERED: METHYLERGONOVINE MALEATE 0.2MG/ML 1ML VIAL IM STA (16:07)
[2022-04-21] MEDS ORDERED: DIBUCAINE 1% OINTMENT 30GM TOP PRN (16:30)
[2022-04-21] MEDS ORDERED: IBUPROFEN 600MG TAB PO PRN (16:30)
[2022-04-21] MEDS ORDERED: DOCUSATE SODIUM 100MG CAPSULE PO PRN (16:30)
[2022-04-21] MEDS ORDERED: ACETAMINOPHEN TAB 650MG DOSE (2X325MG) PO PRN (16:30)
[2022-04-21] MEDS ORDERED: METHYLERGONOVINE MALEATE 0.2 MG TAB PO PRN (16:30)
[2022-04-21] MEDS ORDERED: RHOGAM 300MCG (1500IU) INJ IM SCH (16:30)
[2022-04-21] MEDS: IBUPROFEN 800 MG TAB PO PRN (17:08)
[2022-04-21 17:31] LABS: HEMATOCRIT 34.5 % (36.0-47.0); MEAN CORPUSCULAR HEMOGLOBIN 25.9 pg (27.0-33.0); MEAN CORPUSCULAR HGB CONC 31.9 g/dl (32.0-36.5); MEAN CORPUSCULAR VOLUME 81.4 fl (80.0-96.0); PLATELET COUNT, AUTOMATED 152 10^3/uL (150-450); RED BLOOD COUNT 4.24 10^6/uL (4.00-5.40); WHITE BLOOD COUNT 10.1 10^3/uL (4.0-10.0)
[2022-04-21] MEDS: ACETAMINOPHEN 500 MG TAB PO PRN (19:25)
[2022-04-21] MEDS: guaiFENesin/CODEINE SYRUP 5 ML UDC PO PRN (23:17)
[2022-04-22] MEDS: ACETAMINOPHEN 500 MG TAB PO PRN (02:14)
[2022-04-22 06:00] VITALS: BP 116/64
[2022-04-22] MEDS: guaiFENesin/CODEINE SYRUP 5 ML UDC PO PRN ×2 (07:59→21:11)
[2022-04-22] MEDS: PRENATAL VITAMINS CHEWABLE TABLET PO SCH (08:06)
[2022-04-22] MEDS: IBUPROFEN 800 MG TAB PO PRN (08:07)
[2022-04-22 18:00] VITALS: BP 128/68
[2022-04-23 06:00] VITALS: BP 110/62
[2022-04-23] MEDS ORDERED: MEASLES,MUMPS,RUBELLA VACCINE INJ (MMR-II) SC.IMMUN ONE (09:00)
[2022-04-23] MEDS: PRENATAL VITAMINS CHEWABLE TABLET PO SCH (09:11)
== END 2022-04-23 15:00 | disposition home or self-care (01) | DRG 560 ==
LOC: M LDO 15:20 → M LDI 15:29 → M OBS 19:07
PROVIDERS: ADMIT Specialist; ATTEND Advanced Practice Midwife
PROC: 10E0XZZ Delivery of Products of Conception, External Approach (ICD-10-PCS; principal; 2022-04-21)
PROC: 10907ZC Drainage of Amniotic Fluid, Therapeutic from Products of Conception, Via Natural or Artificial Opening (ICD-10-PCS; 2022-04-21)
DX: O80 Encounter for full-term uncomplicated delivery (principal); Z37.0 Single live birth; Z3A.38 38 weeks gestation of pregnancy

== ENCOUNTER → 2023-01-01 | Outpatient (CLI) | payer OTHER ==
[~2023-01-01] MED LIST changes: +GUAI100S4
[2023-01-01 12:08] LABS: HEMATOCRIT 40.3 % (36.0-47.0); HEMOGLOBIN 13.2 g/dl (12.0-15.5); MEAN CORPUSCULAR HEMOGLOBIN 29.4 pg (27.0-33.0); MEAN CORPUSCULAR HGB CONC 32.8 g/dl (32.0-36.5); MEAN CORPUSCULAR VOLUME 89.8 fl (80.0-96.0); PLATELET COUNT, AUTOMATED 254 10^3/uL (150-450); RED BLOOD COUNT 4.49 10^6/uL (4.00-5.40); WHITE BLOOD COUNT 6.6 10^3/uL (4.0-10.0)
[2023-01-01 12:17] LABS: HEMOGLOBIN A1c 4.4 % (4.0-6.0)
[2023-01-01 12:34] LABS: TOTAL IRON BINDING CAPACITY 308 UG/DL (250-425)
[2023-01-01 12:35] LABS: IRON (FE) 86 UG/DL (50-170); PERCENT SATURATION 27.9 % (13.2-45.0)
[2023-01-01 12:37] LABS: ALBUMIN 4.4 G/DL (3.2-5.2); ALKALINE PHOSPHATASE 82 U/L (46-116); ALT/SGPT 16 U/L (7.0-40); AST/SGOT 9 U/L (<34); BILIRUBIN,TOTAL 1.9 MG/DL (0.3-1.2); BLOOD UREA NITROGEN 22 MG/DL (9-23); CALCIUM LEVEL 9.4 MG/DL (8.5-10.1); CARBON DIOXIDE LEVEL 28 MMOL/L (20-31); CHLORIDE LEVEL 106 MMOL/L (98-107); CHOLESTEROL LEVEL 150 MG/DL (<200); CHOLESTEROL RISK RATIO 3.51 (<5); CREATININE FOR GFR 0.67 MG/DL (0.55-1.30); GLOMERULAR FILTRATION RATE > 60.0 (>60); GLUCOSE, FASTING 96 MG/DL (60-100); HDL CHOLESTEROL 42.7 MG/DL (>40); LDL CHOLESTEROL 100.1 MG/DL (<100); NON-HDL-C 107.3 MG/DL; POTASSIUM SERUM 4.2 MMOL/L (3.5-5.1); SODIUM LEVEL 142 MMOL/L (136-145); THYROID STIMULATING HORMONE 1.115 uIU/ML (0.55-4.78); TOTAL 25(OH) VITAMIN D 25.3 NG/ML (20.0-100.0); TOTAL PROTEIN 7.3 G/DL (5.7-8.2); TRIGLYCERIDES LEVEL 36 MG/DL (<150)
== END ==
LOC: M LAB 11:12
PROVIDERS: ATTEND Family Medicine
DX: D64.9 Anemia, unspecified (principal); R53.83 Other fatigue; E03.9 Hypothyroidism, unspecified

== ENCOUNTER → 2023-11-24 | Outpatient (CLI) | payer OTHER ==
[2023-11-24 11:02] LABS: HEMATOCRIT 38.6 % (36.0-47.0); HEMOGLOBIN 12.5 g/dl (12.0-15.5); MEAN CORPUSCULAR HEMOGLOBIN 30.3 pg (27.0-33.0); MEAN CORPUSCULAR HGB CONC 32.4 g/dl (32.0-36.5); MEAN CORPUSCULAR VOLUME 93.7 fl (80.0-96.0); PLATELET COUNT, AUTOMATED 203 10^3/uL (150-450); RED BLOOD COUNT 4.12 10^6/uL (4.00-5.40); WHITE BLOOD COUNT 6.9 10^3/uL (4.0-10.0)
[2023-11-24 11:32] LABS: TOTAL IRON BINDING CAPACITY 281 UG/DL (250-425)
[2023-11-24 11:35] LABS: ALKALINE PHOSPHATASE 57 U/L (46-116); ALT/SGPT 12 U/L (7.0-40); AST/SGOT < 8 U/L (<34); BILIRUBIN,TOTAL 1.7 MG/DL (0.3-1.2); BLOOD UREA NITROGEN 13 MG/DL (9-23); CALCIUM LEVEL 9.1 MG/DL (8.5-10.1); CARBON DIOXIDE LEVEL 28 MMOL/L (20-31); CHLORIDE LEVEL 108 MMOL/L (98-107); CHOLESTEROL LEVEL 127 MG/DL (<200); CHOLESTEROL RISK RATIO 3.58 (<5); CREATININE FOR GFR 0.66 MG/DL (0.55-1.30); GLOMERULAR FILTRATION RATE > 60.0 (>60); GLUCOSE, FASTING 91 MG/DL (60-100); HDL CHOLESTEROL 35.4 MG/DL (>40); IRON (FE) 74 UG/DL (50-170); LDL CHOLESTEROL 79.6 MG/DL (<100); NON-HDL-C 91.6 MG/DL; PERCENT SATURATION 26.3 % (13.2-45.0); POTASSIUM SERUM 4.3 MMOL/L (3.5-5.1); SODIUM LEVEL 139 MMOL/L (136-145); THYROID STIMULATING HORMONE 1.579 uIU/ML (0.55-4.78); TOTAL 25(OH) VITAMIN D 28.2 NG/ML (20.0-100.0); TOTAL PROTEIN 6.7 G/DL (5.7-8.2); TRIGLYCERIDES LEVEL 60 MG/DL (<150)
[2023-11-24 11:40] LABS: HEMOGLOBIN A1c 4.6 % (4.0-6.0)
== END ==
LOC: M LAB 09:59
PROVIDERS: ATTEND Family Medicine
DX: D64.9 Anemia, unspecified (principal); R53.83 Other fatigue

== ENCOUNTER → 2024-02-07 | Outpatient (CLI) | payer OTHER | LOC: M RAD 11:22 | PROVIDERS: ATTEND Family Medicine | DX: J98.01 Acute bronchospasm (principal) ==

== ENCOUNTER → 2024-04-14 | Outpatient (CLI) | payer OTHER ==
[2024-04-14 11:55] LABS: HEMATOCRIT 39.1 % (36.0-47.0); HEMOGLOBIN 12.7 g/dl (12.0-15.5); MEAN CORPUSCULAR HEMOGLOBIN 29.7 pg (27.0-33.0); MEAN CORPUSCULAR HGB CONC 32.5 g/dl (32.0-36.5); MEAN CORPUSCULAR VOLUME 91.6 fl (80.0-96.0); PLATELET COUNT, AUTOMATED 239 10^3/uL (150-450); RED BLOOD COUNT 4.27 10^6/uL (4.00-5.40); WHITE BLOOD COUNT 6.2 10^3/uL (4.0-10.0)
[2024-04-14 12:10] LABS: HEMOGLOBIN A1c 4.9 % (4.0-6.0)
[2024-04-14 12:22] LABS: ALKALINE PHOSPHATASE 55 U/L (35-104); ALT/SGPT 14 U/L (7.0-40); AST/SGOT 9 U/L (<34); BILIRUBIN,TOTAL 1.3 MG/DL (0.3-1.2); BLOOD UREA NITROGEN 18 MG/DL (9-23); CARBON DIOXIDE LEVEL 28 MMOL/L (20-31); CHLORIDE LEVEL 108 MMOL/L (98-107); CHOLESTEROL LEVEL 152 MG/DL (<200); CHOLESTEROL RISK RATIO 3.91 (<5); CREATININE FOR GFR 0.59 MG/DL (0.55-1.30); GLOMERULAR FILTRATION RATE > 60.0 (>60); GLUCOSE, FASTING 94 MG/DL (60-100); HDL CHOLESTEROL 38.8 MG/DL (>40); IRON (FE) 82 UG/DL (50-170); LDL CHOLESTEROL 100.2 MG/DL (<100); NON-HDL-C 113.2 MG/DL; PERCENT SATURATION 26.8 % (13.2-45.0); POTASSIUM SERUM 4.1 MMOL/L (3.5-5.1); SODIUM LEVEL 143 MMOL/L (136-145); TOTAL IRON BINDING CAPACITY 306 UG/DL (250-425); TOTAL PROTEIN 6.9 G/DL (5.7-8.2); TRIGLYCERIDES LEVEL 65 MG/DL (<150)
[2024-04-14 12:25] LABS: THYROID STIMULATING HORMONE 1.252 uIU/ML (0.55-4.78)
[2024-04-14 12:26] LABS: TOTAL 25(OH) VITAMIN D 50.5 NG/ML (20.0-100.0)
== END ==
LOC: M LAB 11:08
PROVIDERS: ATTEND Family Medicine
DX: D64.9 Anemia, unspecified (principal); R53.83 Other fatigue; E03.9 Hypothyroidism, unspecified